=== PATIENT | female | born 1965 | race Hispanic/Latino ===

== ENCOUNTER 2019-05-11 10:24 | Emergency (ER) | payer OTHER ==
[~2019-05-11] VITALS: Ht 154.9 cm; Wt 104.3 kg
--- OUTSIDE RECORDS SUMMARY | 2019-05-11 10:27 | XMS REPORT | Continuity of Care Document ---
Author Author [employer] Address Unknown Phone Unavailable Care Team Providers Care [employer]estock Haulier Name Role Phone [facility] Unavailable Unavailable Problems Problem Status Onset Date Classification Date Reported Comments Source Acute pharyngitis 08/29/2016 Diagnosis 08/29/2016 [facility] Influenza-like illness 08/26/2016 Diagnosis 08/29/2016 [facility] Tuberculosis screening 07/31/2016 Diagnosis 08/29/2016 [facility] Candidiasis of Mouth Problem 08/29/2016 [facility] Acute Suppurative Otitis Media without Spontaneous Rupture of Ear Drum Problem 08/29/2016 [facility] Acute Otitis Media Problem 08/29/2016 [facility] Acute Sinusitis Problem 08/29/2016 [facility] Acute Pharyngitis Problem 08/29/2016 [facility] Acute Tonsillitis Problem 08/29/2016 [facility] Acute Upper Respiratory Infection Problem 08/29/2016 [facility] Allergic Rhinitis Problem 08/29/2016 [facility] Cellulitis Problem 08/29/2016 [facility] Eczema Problem 08/29/2016 [facility] Skin Hypopigmented Problem 08/29/2016 [facility] Malaise and Fatigue Problem 08/29/2016 [facility] Headache Problem 08/29/2016 [facility] Cough Problem 08/29/2016 [facility] Influenza-like Illness Problem 08/29/2016 [facility] Medications Medication Details Route Status Patient Instructions Ordering Provider Order Date Source Azithromycin 250 MG Oral Tablet azithromycin 250 mg tablet Active [facility] chlorhexidine gluconate 1.2 MG/ML Mouthwash chlorhexidine gluconate 0.12 % mouthwash Active [facility] Cyclobenzaprine hydrochloride 10 MG Oral Tablet cyclobenzaprine 10 mg tablet Active [facility] levocetirizine dihydrochloride 5 MG Oral Tablet levocetirizine 5 mg tablet Active [facility] meloxicam 15 MG Oral Tablet meloxicam 15 mg tablet Active [facility] methylprednisolone 4 mg tablets in a dose pack methylprednisolone 4 mg tablets in a dose pack Active [facility] mometasone furoate 0.05 MG/ACTUAT Metered Dose Nasal [place] [Nasonex] Nasonex 50 mcg/actuation [place] Active [facility] pantoprazole 40 MG Delayed Release Oral Tablet pantoprazole 40 mg tablet,delayed release Active [facility] Purified Protein Derivative of Tuberculin 50 UNT/ML Injectable Solution [Tubersol] Tubersol 5 tub. unit/0.1 mL intradermal injection solution Active [facility] Prednisone 20 MG Oral Tablet prednisone 20 mg tablet Take 2 tablets every day by oral route for 5 days. Active [facility] Dextromethorphan Hydrobromide 3 MG/ML / Promethazine Hydrochloride 1.25 MG/ML Oral Solution promethazine-DM 6.25 mg-15 mg/5 mL syrup Take 5 mL every 6 hours by oral route for 5 days. Active [facility] benzonatate 100 MG Oral Capsule [Tessalon Perles] Tessalon Perles 100 mg capsule Take 1 capsule 3 times a day by oral route for 5 days. Active [facility] Oseltamivir 75 MG Oral Capsule [Tamiflu] Tamiflu 75 mg capsule Take 1 capsule twice a day by oral route for 5 days. Active [facility] Allergies, Adverse Reactions, Alerts No Known Medication Allergies Immunizations Immunization Date Given Site Status Last Updated Comments Source influenza, injectable, quadrivalent 10/03/2015 completed [facility] influenza, seasonal, injectable 07/13/2014 completed [facility] influenza, seasonal, injectable 08/07/2013 completed [facility] Results Order Name Results Value Reference Range Date Interpretation Comments Source Influenza A negative 08/29/2016 [facility] Influenza B negative 08/29/2016 [facility] RESULT negative 08/29/2016 [facility] SWAB LOCATION Left and Right tonsillar pillars 08/29/2016 [facility] RESULT negative 08/29/2016 [facility] SWAB LOCATION Left and Right tonsillar pillars 08/29/2016 [facility] Influenza A negative 08/26/2016 [facility] Influenza B negative 08/26/2016 [facility] RESULT negative 08/26/2016 [facility] SWAB LOCATION Left and Right tonsillar pillars 08/26/2016 [facility] Pathology Reports No Data Provided for This Section Diagnostic Reports No Data Provided for This Section Consultation Notes No Data Provided for This Section Discharge Summaries No Data Provided for This Section History and Physicals No Data Provided for This Section Vital Signs Vital Sign Value Date Comments Source Diastolic (mm Hg) 82 08/29/2016 [facility] Height 61 08/29/2016 [facility] Systolic (mm Hg) 128 08/29/2016 [facility] Weight 220 08/29/2016 [facility] Diastolic (mm Hg) 70 08/26/2016 [facility] Height 61 08/26/2016 [facility] Systolic (mm Hg) 102 08/26/2016 [facility] Weight 220 08/26/2016 [facility] Encounters Location Location Details Encounter Type Encounter Number Reason For Visit Attending Provider ADM Date DC Date Status Source [place] - [facility] - [id number] Jackie Camejouyen, BAND RIP[employer] OPERATOR: [address] [facility], [place] [address], Ph. [id number] Jackie Nisha 07/31/2016 [facility] [place] [facility] - [id number] Jackie Nisha, BAND RIPSAW OPERATOR: [address] [facility], [place] [address], Ph. [id number] Jackie Nisha 07/31/2016 [facility] [place] - [facility] - [id number] Jackie Camejouyen, BAND RIPSAW OPERATOR: [address] [facility] [facility], [place] [address], Ph. [id number] Jackie Cameron 07/31/2016 [facility] [place] - [facility] - [id number] Dell Izquierdo, BAND RIPSAW OPERATOR: [address], [place] [address], Ph. [id number] Dell Izquierdo 08/26/2016 [facility] [place] - [facility] - [id number] Dell Izquierdo, BAND RIPSAW OPERATOR: [address] [facility], [place] [address], Ph. [phone] [id number] Dell Izquierdo 08/26/2016 [facility] [place] - [facility] - [id number] Bailey, NET MOBILE DEVELOPER: [address] [facility], [place], [place] [address], Ph. [id number] Kim Bailey 08/29/2016 [facility] Procedures Procedure Code Date Perfomer Comments Source Appendectomy [facility] Assessment and Plan No Data Provided for This Section Plan of Care No Data Provided for This Section Social History Social History Date Source Smoking Status Never Smoker 07/15/2011 [facility] Family History No Data Provided for This Section Advance Directives No Data Provided for This Section Functional Status No Data Provided for This Section
--- OUTSIDE RECORDS SUMMARY | 2019-05-11 10:27 | XMS REPORT | Encounter Summary ---
Author Organization Unknown Address [address] [place] [address] Phone [phone] Reason for Visit Medical Complaint; sore throat, headache, body aches x 6 days Instructions 1. Acute pharyngitis rapid strep group A, throat culture, throat 2. Cough Tessalon Perles 100 mg capsule promethazine-DM 6.25 mg-15 mg/5 mL syrup prednisone 20 mg tablet Discussion Note Patient advised to gargle with warm salt water, start chloroseptic as needed, alternatetylenol every four- six hours for throat pain. throat throat culture sent . Return to clinic or urgent care with continued or worsening symptoms. If gets worrse after 3 days give us a call Patient educational handouts: No information available. Plan of Care Reminders Provider Appointments None recorded. Lab Rapid Strep Group a, Throat 08/29/2016 [facility] Culture, Throat 08/29/2016 [facility] Referral None recorded. Procedures None recorded. Surgeries None recorded. Imaging None recorded. Medications Name Start Date prednisone 20 mg tablet Take 2 tablets every day by oral route for 5 days. promethazine-DM 6.25 mg-15 mg/5 mL syrup Take 5 mL every 6 hours by oral route for 5 days. Tessalon Perles 100 mg capsule Take 1 capsule 3 times a day by oral route for 5 days. Medications Administered None recorded. Vitals Height Weight BMI Blood Pressure 5 ft 1 in 220 lbs 41.6 128/82 Lab Results Date Name Result Description Value Range Status PPD (Purified Protein Derivative), Skin Test Result mm Induration Date Read Read by: (Enter Name) Rapid Flu (A+B) Influenza a negative Influenza B negative Rapid Strep Group a, Throat Result negative Swab Location Left and Right tonsillar pillars Rapid Strep Group a, Throat Result negative Swab Location Left and Right tonsillar pillars Allergies Name Reaction Severity Onset NKDA Problems Name Status Onset Date Source Candidiasis of Mouth Active Encounter Acute Suppurative Otitis Media without Spontaneous Rupture of Ear Drum Active Encounter Acute Otitis Media Active Encounter Acute Sinusitis Active Encounter Acute Pharyngitis Active Encounter Acute Tonsillitis Active Encounter Acute Upper Respiratory Infection Active Encounter Allergic Rhinitis Active Encounter Influenza-like Illness Active Encounter Cellulitis Active Encounter Eczema Active Encounter Skin Hypopigmented Active Encounter Malaise and Fatigue Active Encounter Headache Active Encounter Cough Active Encounter Procedures Date Name Performed by Appendectomy Information not available Vaccine List Vaccine Type influenza, injectable, quadrivalent 10/03/20150.5 mL influenza, seasonal, injectable 08/07/2013 07/12/2014 Social History Smoking Status Never Smoker Past Encounters 08/29/2016 Acute Pharyngitis; Cough Kim Bailey, [employer] DEVELOPER: [address] [place] [address], Ph. 08/26/2016 Influenza-like Illness Dell Izquierdo, ANIMAL LABORATORY HELPER: [address] [place] [address], Ph. 07/31/2016 Tuberculosis Screening DIANELYS HiltonP: [address] [place] [address], Ph. History of Present Illness [id number] Reported By: Patient HPI: Location: head/sinuses, throat. Quality: sore throat, nasal/sinus congestion. Duration: 3days. Severity: moderate. Onset/Timing: gradual. Context: no sick contacts, no foreign travel, non-smoker. Modifying factors: OTC medication. Associated Symptoms: no sputum production, no shortness of breath, no wheezing, no change in number of pillows needed to sleep at night, no sweats, no significant weight gain, no significant weight loss, no morning cough, no sore throat, no vomiting, no diarrhea, no rash, no nausea Review of Systems Basic Reported By: Patient Constitutional: Constitutional: no fever Eyes: Eyes: no eye complaints Ddtt-Btey-Dlzsl-Throat: Ears: no ear complaints. Nose: nose/sinus problems. Mouth/Throat: no bleeding gums, no mouth complaints, no teeth problems, sore throat Respiratory: Respiratory: cough Musculoskeletal: Musculoskeletal: no muscle aches, no muscle weakness, no arthralgias/joint pain, no back pain Skin: Skin: no abnormal / changing mole, no jaundice, no rashes Neurologic: Neurologic: no loss of consciousness, no weakness, no numbness, no seizures, no dizziness, headache Physical Exam Adult Basic, Adult Female Complete Constitutional: General Appearance: healthy-appearing, well-nourished, well-developed. Level of Distress: mild distress. Ambulation: ambulating normally Psychiatric: Mental Status: active and alert. Orientation: to time, to place, to person Eyes: Lids and Conjunctivae: non-injected, no discharge, no pallor. Pupils: PERRLA. Corneas: grossly intact, fluorescein stain--normal. EOM: EOMI. Lens: clear. Sclerae: non-icteric. Vision: acuity grossly intact Arn-Ftby-Qgdhj-Throat: Ears: no lesions on external ear, no outer ear tenderness, EACs clear, TMs clear. Hearing: no hearing loss. Nose: no lesions on external nose, nares patent, nasal passages clear, no sinus tenderness, nasal discharge--rhinorrhea, post nasal drip. Lips, Teeth, and Gums: no mouth or lip ulcers, no bleeding gums, normal dentition. Oropharynx: moist mucous membranes, no exudates, tonsils not enlarged, erythema Neck: Neck: supple, trachea midline, no masses, FROM. Lymph Nodes: no cervical LAD, no supraclavicular LAD, no axillary LAD, no inguinal LAD. Thyroid: no enlargement, no nodules Lungs: Respiratory effort: no dyspnea, no tachypnea, no use of accessory muscles, no intercostal retractions. Auscultation: breath sounds normal Cardiovascular: Heart Auscultation: RRR, no murmurs. Neck vessels: no carotid bruits Neurologic: Gait and Station: normal gait, normal station. Cranial Nerves: grossly intact. Sensation: grossly intact. Reflexes: DTRs 2+ bilaterally throughout Skin: Inspection and palpation: no rash, no lesions, no ulcer, no abnormal nevi, no induration, no nodules, good turgor, no jaundice
--- OUTSIDE RECORDS SUMMARY | 2019-05-11 10:27 | XMS REPORT | Encounter Summary ---
Author Organization Unknown Address [address] [place] [address] Phone [phone] Reason for Visit Screening - TB; tb test Instructions 1. Tuberculosis screening PPD (purified protein derivative), skin test - Patient was advised to follow-up with [facility] within 48-72 hours. Tubersol 5 tub. unit/0.1 mL intradermal injection solution Discussion Note: None recorded. Patient educational handouts: No information available. Plan of Care Reminders Provider Appointments None recorded. Lab PPD (Purified Protein Derivative), Skin Test 07/31/2016 [facility] Referral None recorded. Procedures None recorded. Surgeries None recorded. Imaging None recorded. Medications Name Start Date azithromycin 250 mg tablet chlorhexidine gluconate 0.12 % mouthwash cyclobenzaprine 10 mg tablet levocetirizine 5 mg tablet meloxicam 15 mg tablet methylprednisolone 4 mg tablets in a dose pack Nasonex 50 mcg/actuation [place] pantoprazole 40 mg tablet,delayed release Tubersol 5 tub. unit/0.1 mL intradermal injection solution Medications Administered Name Date Tubersol 5 tub. unit/0.1 mL intradermal injection solution Take 0 mL by intradermal route. [id number]:11:01 Vitals None recorded. Lab Results None recorded. Allergies Name Reaction Severity Onset NKDA Problems Name Status Onset Date Source Candidiasis of Mouth Active Encounter Acute Suppurative Otitis Media without Spontaneous Rupture of Ear Drum Active Encounter Acute Otitis Media Active Encounter Acute Sinusitis Active Encounter Acute Pharyngitis Active Encounter Acute Tonsillitis Active Encounter Acute Upper Respiratory Infection Active Encounter Allergic Rhinitis Active Encounter Cellulitis Active Encounter Eczema Active Encounter Skin Hypopigmented Active Encounter Malaise and Fatigue Active Encounter Headache Active Encounter Cough Active Encounter Procedures Date Name Performed by Appendectomy Information not available Vaccine List Vaccine Type influenza, injectable, quadrivalent 10/03/20150.5 mL influenza, seasonal, injectable 08/07/2013 07/12/2014 Social History Smoking Status Never Smoker Past Encounters 07/31/2016 Tuberculosis Screening Jackie Cameron, [facility]: [address] [facility], [place] [address], Ph. History of Present Illness Screening Request - TB Reported By: Patient Screening Request: BCG No prior BCG vaccination. PPD No past history of postive TB skin test (PPD), No previous severe local reaction to TB skin test (PPD). OTHER No prior vaccines within last month Review of Systems Screening - TB Reported By: Patient Symptoms during past year > 2 weeks, NOT associated with specific illness?: unexplained or low grade fever No fever. night sweats No night sweats. unexplained weight loss > 5 lbs No unexplained weight loss. persistent cough No persistent cough. shortness of breath No shortness of breath. coughing up blood (hemoptysis) No coughing up blood (hemoptysis). unusual fatigue No unusual fatigue. loss of appetite No loss of appetite. swollen neck glands No swollen neck glands Physical Exam Screening General Appearance: General: well-developed, well-nourished, no acute distress
--- OUTSIDE RECORDS SUMMARY | 2019-05-11 10:27 | XMS REPORT | Encounter Summary ---
Author Organization Unknown Address [address] [place] [address] Phone [phone] Reason for Visit Medical Complaint; sore throat, headache, bodyaches, ear pain, cough x 2 days Instructions 1. Influenza-like illness rapid flu (A+B) rapid strep group A, throat Tamiflu 75 mg capsule influenza (flu): care instructions Discussion Note See handout Plan of Care Patient Instructions See handout Reminders Provider Appointments None recorded. Lab Rapid Flu (A+B) 08/26/2016 [facility] Rapid Strep Group a, Throat 08/26/2016 [facility] Referral None recorded. Procedures None recorded. Surgeries None recorded. Imaging None recorded. Medications Name Start Date Tamiflu 75 mg capsule Take 1 capsule twice a day by oral route for 5 days. Medications Administered None recorded. Vitals Height Weight BMI Blood Pressure 5 ft 1 in 220 lbs 41.6 102/70 Lab Results Date Name Result Description Value [...] History Smoking Status Never Smoker Past Encounters 08/26/2016 Influenza-like Illness SUSAN Santos: [address] [place] [address], Ph. 07/31/2016 Tuberculosis Screening Jackie Cameron, DEMAND PLANNING ANALYST: [address] [facility] [place] [address], Ph. History of Present Illness [id number] Reported By: Patient HPI: Quality: symptoms worse during the day. Duration: 2 days. Severity: subjective temperature. Onset/Timing: first recorded yesterday. Context: no ill contacts, no tick/insect bites, no recent travel, no new medications. Associated Symptoms: no rash, no lethargy, cold symptoms, generalized pain, tired (fatigue), cough, nasal passage blockage (stuffiness). Modifying Factors OTC medication Review of Systems:ROS as noted in the HPI Review of Systems Basic Reported By: Patient Physical Exam Adult Basic Constitutional: General Appearance: healthy-appearing, well-nourished, well-developed. Level of Distress: NAD. Ambulation: ambulating normally Psychiatric: Mental Status: active and alert. Orientation: to time, to place, to person Eyes: Lids and Conjunctivae: non-injected, no discharge, no pallor. Pupils: PERRLA. Corneas: grossly intact. Lens: clear. Sclerae: non-icteric. Vision: acuity grossly intact Jjo-Ncsj-Xevgk-Throat: Ears: no lesions on external ear, no outer ear tenderness, EACs clear, TMs clear. Hearing: no hearing loss. Nose: no lesions on external nose, nares patent, no septal deviation, nasal passages clear, no sinus tenderness, nasal discharge--rhinorrhea. Lips, Teeth, and Gums: no mouth or lip ulcers, no bleeding gums, normal dentition. Oropharynx: moist mucous membranes, no exudates, tonsils not enlarged, erythema Neck: Lymph Nodes: no cervical LAD, no supraclavicular LAD Lungs: Respiratory effort: no dyspnea, no tachypnea, no use of accessory muscles, no intercostal retractions. Auscultation: breath sounds normal Cardiovascular: Heart Auscultation: RRR, no murmurs Neurologic: Gait and Station: normal gait, normal station Skin: Inspection and palpation: no rash, no lesions, no ulcer, no abnormal nevi, no induration, no nodules, good turgor, no jaundice
== END 2019-05-11 11:10 | disposition left against medical advice (07) ==
LOC: FSED 10:24
DX: R05 Cough (principal)